=== PATIENT | female | born 1970 | race Caucasian/White ===

== ENCOUNTER → 2016-12-22 | Outpatient (CLI) | payer OTHER ==
[~2016-12-22] VITALS: Ht 160 cm; Wt 73.3 kg
[~2016-12-22] MED LIST: ALPR0.5T3 PO; BIOCTAB PO; CHOL100028 PO; CYCL-36 PO; CYCL1TAB29 PO; HYDR-3535 PO; LORA-392 PO; MIRA33504 PO; MULTTAB67 PO; ONABOTULINUMTOXINA INJ 100 UNITS/VIAL ONE; PROPOFOL 200 MG/20 ML AMP IV ONE; ZITH250T PO
[2016-12-22 09:30] VITALS: BP 98/62; PULSE 63; RESP 16; TEMP 97.6; O2SAT 100
[2016-12-22 11:15] VITALS: BP 105/75; PULSE 65; RESP 16; O2SAT 99
== END ==
LOC: HEND 08:18
PROVIDERS: ATTEND Internal Medicine Gastroenterology
DX: K31.84 Gastroparesis (principal); K22.2 Esophageal obstruction; K29.50 Unspecified chronic gastritis without bleeding; K44.9 Diaphragmatic hernia without obstruction or gangrene; K20.9 Esophagitis, unspecified
CPT/HCPCS: 43236; 43239; 43248; 88305; 88312; 99156; 99157; C1769; J0585

== ENCOUNTER → 2017-05-04 | Day surgery (SDC) | payer OTHER ==
[~2017-05-04] MED LIST changes: -CYCL-36 PO; -HYDR-3535 PO; +LACTATED RINGER'S 1,000 ML BAG IV ONE; -LORA-392 PO; +SODIUM CHLORIDE 0.9% INJ 10 ML ONE; -ZITH250T PO
--- NOTE | 2017-05-04 12:22 | GIPROC ---
[facility] [address] [facility], [id number] EGD PROCEDURE REPORT EXAM DATE: 05/04/2017 PATIENT NAME: Naz Landin MR #: [id number] BIRTHDATE: 1970 ATTENDING: Bo Cuba MD ORDER #: [id number] WASHERY BOSS: Darling Cerrato RN STATUS: outpatient INDICATIONS: The patient is a 46 yr old female here for an EGD due to gastroparesis PROCEDURE PERFORMED: EGD w/ biopsy MEDICATIONS: None, Per Anesthesia, None, and Per Anesthesia. TOPICAL ANESTHETIC: CONSENT: The patient understands the risks and benefits of the procedure and understands that these risks include, but are not limited to: sedation, allergic reaction, infection, perforation and/or bleeding. Alternative means of evaluation and treatment include, among others: physical exam, x-rays, and/or surgical intervention. The patient elects to proceed with this endoscopic procedure. medical equipment was checked for proper function. Hand hygiene and appropriate measures for infection prevention was taken. After the risks, benefits and alternatives of the procedure were thoroughly explained, Informed consent was verified, confirmed and timeout was successfully executed by the treatment team. The patient was anesthetized with topical anesthesia and the EC-[id number] ([id number]) endoscope was introduced through the mouth and advanced to the second portion of the duodenum. Retroflexed views revealed no abnormalities The gastroscope was then slowly withdrawn and removed. ESOPHAGUS: The mucosa of the esophagus appeared normal. STOMACH: The mucosa of the stomach appeared normal. 100 units of botox injected into the pyloric area. DUODENUM: The duodenal mucosa appeared normal. ADVERSE EVENTS: There were no complications. IMPRESSIONS: 1. The esophagus appeared normal 2. The mucosa of the stomach appeared normal. Botox injected into the pyloric area 3. Normal duodenal mucosa 4. Retroflexed views revealed no abnormalities RECOMMENDATIONS: Follow-up: GI clinic 4 week(s) PATIENT CONDITION: stable DISPOSITION: Home REPEAT EXAM: Bo Cuba MD eSigned: Bo Cuba MD 05/04/2017 12:21 PM cc: [facility]
== END | disposition home or self-care (01) ==
LOC: ESDC 10:19
PROVIDERS: ATTEND Internal Medicine Gastroenterology
DX: K31.84 Gastroparesis (principal)
CPT/HCPCS: 00740; 43239; J0585; J3010; J7120